=== PATIENT | female | born 1995 | race Caucasian/White ===

== ENCOUNTER → 2016-03-15 12:57 | Outpatient (CLI) | payer SELFPAY ==
[~2016-03-15 12:57] MED LIST: Demerol PO; GLUCOPHAGE500 MG PO; IBUPROFEN600 MG PO; METHYLDOPA500 MG PO; PRENATAL COMPLE1 TAB PO
[2016-04-25 03:43] VITALS: BMI 42.2
== END | disposition home or self-care (01) ==
LOC: D.LDO 12:57
DX: O13.3 Gestational [pregnancy-induced] hypertension without significant proteinuria, third trimester (principal); Z3A.33 33 weeks gestation of pregnancy; O16.3 Unspecified maternal hypertension, third trimester

== ENCOUNTER → 2016-03-19 14:08 | Outpatient (CLI) | payer SELFPAY ==
[2016-04-25 03:43] VITALS: BMI 42.2
== END | disposition home or self-care (01) ==
LOC: D.LDO 14:08
DX: O24.913 Unspecified diabetes mellitus in pregnancy, third trimester (principal); Z3A.33 33 weeks gestation of pregnancy

== ENCOUNTER → 2016-03-22 09:33 | Outpatient (CLI) | payer MEDICAID ==
[2016-04-25 03:43] VITALS: BMI 42.2
== END | disposition home or self-care (01) ==
LOC: D.LDO 09:33
DX: O24.419 Gestational diabetes mellitus in pregnancy, unspecified control (principal); Z3A.34 34 weeks gestation of pregnancy

== ENCOUNTER → 2016-03-26 17:32 | Outpatient (CLI) | payer MEDICAID ==
[2016-04-25 03:43] VITALS: BMI 42.2
== END | disposition home or self-care (01) ==
LOC: D.LDO 17:32
DX: O24.419 Gestational diabetes mellitus in pregnancy, unspecified control (principal); O16.3 Unspecified maternal hypertension, third trimester; Z3A.34 34 weeks gestation of pregnancy

== ENCOUNTER → 2016-03-29 13:50 | Outpatient (CLI) | payer MEDICAID ==
[2016-04-25 03:43] VITALS: BMI 42.2
== END | disposition home or self-care (01) ==
LOC: D.LDO 13:50
DX: O24.419 Gestational diabetes mellitus in pregnancy, unspecified control (principal); O13.3 Gestational [pregnancy-induced] hypertension without significant proteinuria, third trimester; Z3A.35 35 weeks gestation of pregnancy

== ENCOUNTER → 2016-04-02 13:15 | Outpatient (CLI) | payer MEDICAID ==
[2016-04-25 03:43] VITALS: BMI 42.2
== END | disposition home or self-care (01) ==
LOC: D.LDO 13:15
DX: O24.419 Gestational diabetes mellitus in pregnancy, unspecified control (principal); O16.3 Unspecified maternal hypertension, third trimester; Z3A.35 35 weeks gestation of pregnancy

== ENCOUNTER → 2016-04-05 10:04 | Outpatient (CLI) | payer MEDICAID ==
[2016-04-25 03:43] VITALS: BMI 42.2
== END | disposition home or self-care (01) ==
LOC: D.LDO 10:04
DX: O24.419 Gestational diabetes mellitus in pregnancy, unspecified control (principal); O16.3 Unspecified maternal hypertension, third trimester; Z3A.36 36 weeks gestation of pregnancy

== ENCOUNTER → 2016-04-09 16:36 | Outpatient (CLI) | payer MEDICAID ==
[2016-04-25 03:43] VITALS: BMI 42.2
== END | disposition home or self-care (01) ==
LOC: D.LDO 16:36
DX: O24.419 Gestational diabetes mellitus in pregnancy, unspecified control (principal); O16.3 Unspecified maternal hypertension, third trimester; Z3A.36 36 weeks gestation of pregnancy

== ENCOUNTER → 2016-04-12 11:50 | Outpatient (CLI) | payer MEDICAID ==
[2016-04-25 03:43] VITALS: BMI 42.2
== END | disposition home or self-care (01) ==
LOC: D.LDO 11:50
DX: O24.419 Gestational diabetes mellitus in pregnancy, unspecified control (principal); O16.3 Unspecified maternal hypertension, third trimester; Z3A.37 37 weeks gestation of pregnancy

== ENCOUNTER → 2016-04-16 10:30 | Outpatient (CLI) | payer MEDICAID ==
[2016-04-25 03:43] VITALS: BMI 42.2
== END | disposition home or self-care (01) ==
LOC: D.ER 10:30 → D.LDO 10:30
DX: O24.419 Gestational diabetes mellitus in pregnancy, unspecified control (principal); Z3A.37 37 weeks gestation of pregnancy; O16.3 Unspecified maternal hypertension, third trimester

== ENCOUNTER → 2016-04-19 16:06 | Outpatient (CLI) | payer MEDICAID ==
[2016-04-25 03:43] VITALS: BMI 42.2
== END | disposition home or self-care (01) ==
LOC: D.LDO 16:06
DX: O24.419 Gestational diabetes mellitus in pregnancy, unspecified control (principal); Z3A.38 38 weeks gestation of pregnancy; O10.913 Unspecified pre-existing hypertension complicating pregnancy, third trimester

== ENCOUNTER 2016-04-23 08:56 | Inpatient (IN) | payer MEDICAID ==
[~2016-04-23] VITALS: Ht 172.7 cm; Wt 125.9 kg
--- NOTE | 2016-04-23 09:21 | NUR ---
PT ARRIEVED TO OPS WITHOUT GOING TO HER PREOP APPT WITH DR SOLIS. CALLED DR SOLIS AND EXPLAINED TO HER THAT THE PATIENT DID NOT PREP/CLEAR LIQUIDS DR SOLIS STATED THAT SHE IS CANCELLED AND TO CALL HER OFFICE. SPOKE WITH JAMIA AT DR PARRY OFFICE AND SHE ASKED FOR THE PATIENT TO COME OVER TO THE OFFICE NOW. EXPLAINED TO PATIENT AND PT STATES UNDERSTANDING
[2016-04-25] MEDS ORDERED: PRENATAL COMPLE1 TAB PO (03:32)
[2016-04-25 03:43] VITALS: BP 145/83; Ht 172.7 cm; Wt 125.9 kg
[2016-04-25 04:06] LABS: HEMATOCRIT 35.5 % (36.0-48.0); HEMOGLOBIN 11.7 g/dL (12-16); MCH 28.4 pg (26.0-34.0); MCV 86.2 fL (80.0-100.0); MEAN PLATELET VOLUME 9.9 fL (7.4-10.4); RBC 4.12 10x6/uL (4.00-5.40); WBC 10.5 10x3/uL (4.8-10.8)
[2016-04-25] MEDS ORDERED: METHYLDOPA500 MG PO (04:08)
[2016-04-25] MEDS ORDERED: GLUCOPHAGE500 MG PO (04:09)
[2016-04-25 04:13] LABS: COLOR YELLOW (YELLOW)
[2016-04-25 04:14] LABS: APPEARANCE HAZY (CLEAR); BILIRUBIN NEGATIVE (NEGATIVE); GLUCOSE NEGATIVE (NEGATIVE); KETONE NEGATIVE (NEGATIVE); LEUKOCYTE ESTERASE TRACE (NEGATIVE); NITRITE NEGATIVE (NEGATIVE); PH 6.5 (5.0-6.0); PROTEIN TRACE mg/dL (NEGATIVE); SPECIFIC GRAVITY 1.015 (1.005-1.020); UROBILINOGEN NORMAL (NORMAL)
[2016-04-25 05:18] LABS: BACTERIA MANY /hpf (NONE SEEN); HYALINE CAST OCC /lpf (NONE SEEN); MUCUS >1+ /lpf (NONE SEEN); RED CELLS - URINE OCC /hpf (0-5)
--- NOTE | 2016-04-26 04:34 | NUR ---
NOTED WHEN TRANSFER PATIENT TO OR BED TAHT NO URINE OUTPUT IN PONCE, SMALL AMOUNT BLOOD TINGED MATERIAL IN PONCE ONLY IN CATHETER ITSELF, NOTIFIED DR KAUR IT WAS FOUND THAT PONCE HAD BEEN PLACED IN VAGINA, TAKEN OUT BY DR KAUR, AND NEW PONCE WAS THEN PLACED, WITH CRAWFORD OUTPUT NOTED. 0421 VIABLE BABY GIRL DELIVERED, CORD BLOOD AND GASES DONE AND SENT OUT, SEBAS.
[2016-04-26 05:51] VITALS: BP 140/69
--- NOTE | 2016-04-26 05:51 | NUR ---
RECEIVED PT VIA BED FROM OR POST C/S PER DR KAUR, PT TO ROOM 1216, VS INITIATED, ASSESSMENT PER FLOW SHEET, IV IN RIGHT WRIST INTACT WITH NO REDNESS OR EDEMA, WILL HANG NEW BAG OF PITOCIN, FF, ML, U/1, MOD BLEEDING NOTED WITH CLOTS, OCTAVIO CARE DONE WITH WET WARM WASH CLOTHS, [employer] WITH DERMABOND CDI WITH NO DRAINAGE NOTED, ICE PACK TO ABD, BLUE CHUX AND PINK PAD CHANGED, PONCE CATH INTACT, DRAINING DARK YELLOW URINE, EMPTIED 300 MLS FROM PONCE, SCD'S APPLIED AND WORKING PROPERLY, WILL INITIATE TALENT ACQUISITION PARTNER
[2016-04-26 06:05] VITALS: BP 160/83
--- NOTE | 2016-04-26 06:11 | NUR ---
VS CONTINUE, SPECIAL EDUCATION SUPERINTENDENT INITIATED PER THIS RN AND KATELYNN CALVILLO, RN, SEE EMAR, PT REQUESTED AND SERVED DIET BUFFY JORGENSEN, PT ORIENTED TO ROOM, BED IN LOW POSITION, SIDE RAILS X 2, CALL LIGHT IN REACH, FOB AND FAMILY MEMBER AT BEDSIDE
[2016-04-26 06:17] LABS: RAPID PLASMA REAGIN Non Reactive (Non Reactive)
[2016-04-26 06:20] VITALS: BP 149/76
[2016-04-26 06:35] VITALS: BP 145/73
--- NOTE | 2016-04-26 06:35 | NUR ---
PT VISITING WITH FOB, RATES INC PAIN 06/26, STATES "IT'S BETTER", PT DENIES NEEDS AT THIS TIME
--- NOTE | 2016-04-26 07:00 | NUR ---
SHIFT REPORT TO DAY SHIFT
--- NOTE | 2016-04-26 07:10 | NUR ---
FOB AT AIRCRAFT LOG CLERK, STATES "I THINK MY IS RUNNING A TEMPERATURE, SHE SAYS SHES REALLY HOT", THIS RN TO ROOM, TEMP 98.6
--- NOTE | 2016-04-26 07:43 | OP ---
PATIENT NAME: MALIA MONGE MEDICAL RECORD: [id number] :93 LOCATION:[facility] ADMISSION DATE:04/25/16 SURGEON: DENISE KAUR MD DATE OF OPERATION: 04/26/2016 PREOPERATIVE DIAGNOSIS: Nonreassuring trace. POSTOPERATIVE DIAGNOSIS: Nonreassuring trace. PROCEDURE: Primary low transverse section. SURGEON: Denise Kaur MD ANESTHESIA: Epidural. FINDINGS: An 8-pound 8.6 ounce female infant in cephalic presentation, clear fluids, 7 and 9 Apgars. ESTIMATED BLOOD LOSS: 800 cc. COMPLICATIONS OF SURGERY: None. OPERATIVE NOTE: The patient was taken to the OR and under adequate epidural anesthesia, prepped and draped in the usual manner for abdominal procedures. A transverse incision was made in the lower abdomen and extended through subcutaneous tissue, fascia, dividing muscles in the midline in the Pfannenstiel manner. Peritoneum was elevated and incised and this incision extended from the symphysis pubis to within 7 cm of the umbilicus, avoiding the bladder and abdominal organs. A transverse incision was then made in the lower uterine segment and infant was delivered through the uteroabdominal incision without complication. was thoroughly suctioned, cord doubly clamped and ligated and the handed to waiting nursery personnel. Placenta was removed manually. The uterus was cleansed of blood clots using a clean, dry lap. Uterine incision closed in two layers, first layer running interlocking #1 chromic suture, second layer a running #1 chromic suture. Hemostasis was good. Pelvis was copiously irrigated and suctioned and hemostasis again confirmed. Josef was applied to the incision. Fascial layer closed in a running noninterlocking #1 PDS loop suture. Skin incision closed in 3 layers, 2 layers of running 2-0 plain gut suture. Skin incision reapproximated with a subcuticular 2-0 plain gut suture. Dermabond was applied, a Steri-Strip dressing was applied and the patient went to recovery area in good condition. TRANSINT:[id number] Voice Confirmation ID: [id number] DOCUMENT ID: [id number] DENISE KAUR MD at 0743 CC: [id number] DICTATION DATE: 04/26/16 0528 ASSOCIATE FINANCIAL ADVISOR: 04/26/16 0551 ADM IN [facility] [address] [facility], [facility]
--- NOTE | 2016-04-26 08:10 | NUR ---
PATIENT IS AWAKE AND ALERT, VSS. SHE DENIES UNCONTROLLED PAIN. IS NOT VERY CONVERSANT. DOES MOST TALKING BUT SHE IS INTERACTIVE AND SMILES ALOT. SHE HASN'T SEEN HER BABY YET. SHE STATES THAT SHE HASN'T EVER HELD A . HER FF, MIDLINE. URINE IS PATENT TO THE BEDISDE UROMETER. SCD'S ARE ON AND PUMPING. IVF ARE INFUSING PER ORDERS AND INSTRUCTOR NURSE IS IN USE. RIGHT WRIST INSERTION SITE IS WITHOUT REDNESS/ SWELLING.
[2016-04-26 09:00] VITALS: BP 139/75
--- NOTE | 2016-04-26 12:30 | NUR ---
PATIENT C/O UNRELIEVED PAIN IN HER ABDOMEN. TORADOL GIVEN. PILLOWS PROVIDED FOR COMFORT AND POSITIONING. ASSISTED THE FATHER WITH SWADDLING THE . PLACED HER IN PATIENT'S ARMS UP ON PILLOWS. PATIENT LOOKING AT INFANT LOVINGLY. CALL LIGHT IS WITHIN HER REACH.
--- NOTE | 2016-04-26 16:20 | NUR ---
PATIENT'S BLEEDING REMAINS SMALL/MODERATE. SHE IS ANXIOUS TO GET OOB AND MOVE AROUND. SPOKE WITH DR. SOLIS. NEW ORDERS RECEIVED. FOB AT THE BEDISDE AND VERY ATTENTIVE.
--- NOTE | 2016-04-26 17:10 | NUR ---
PATIENT SITTING UP IN HER BED, HI FOWLERS, EATING HER SUPPER. ENIES NEEDS. FOB AT THE BEDSIDE.
--- NOTE | 2016-04-26 19:30 | NUR ---
OCTAVIO CARE DONE AND PADS CHANGED. MODERATE LOCHIA NOTED. FUNDUS FIRM U/2. PT C/O PAIN 08/26. CORRECTIVE THERAPY AIDE TEACHER DEMEROL AVAILABLE FOR PAIN CONTROL. S/O PRESENT IN ROOM HOLDING . FRESH ICE CAP TO ABDOMEN PROVIDED. ANAI TORO
[2016-04-26 20:15] VITALS: BP 146/91
--- NOTE | 2016-04-26 20:15 | NUR ---
USER INTERFACE DEVELOPER PERFORMED. RESP EVEN AND UNLABORED. LUNGS CLEAR BILATERALLY. FUNDUS FIRM U/2. PONCE CATHETER DC'D WITH 850CC CLEAR YELLOW URINE NOTED. SCDS PRESENT TO BLE. PUMP ON AND FUNCTIONING. PITOCIN INFUSING TO R HAND AT 125CC/HR. PLASTIC INJECTION MOLD MAKER DEMEROL AVAILABLE FOR PAIN CONTROL. S/O PRESENT IN ROOM AND SUPPORTIVE. ANAI TORO
--- NOTE | 2016-04-26 21:30 | NUR ---
IV TO SALINE LOC, ASSISTED UP TO BATHROOM. ASSISTED PT WITH PADS, PANTIES AND CLEAN GOWN. PT AMBULATED TO ROOM 1257. S/O AND INFANT AT SIDE. ASSISTED PT TO BED. LEMON NEWHALEN PROVIDED PER PT REQUEST. ANAI TORO
--- NOTE | 2016-04-26 21:40 | NUR ---
THIS RN TO BEDSIDE FOR SUPPORT. ATTEMPTED TO BREASTFEED . REFUSED TO LATCH. INFANT PLACED SKIN TO SKIN ON PT'S CHEST. ANAI TORO
--- NOTE | 2016-04-26 23:51 | NUR ---
PERCOCET 5/325 ADMINISTERED FOR C/O PAIN 06/26. ANAI TORO
[2016-04-27] VITALS (7 sets, daily range): BP systolic 127–155; BP diastolic 57–97
--- NOTE | 2016-04-27 00:15 | NUR ---
ASSISTED UP TO BATHROOM AND BACK TO BED. VS TAKEN AT THIS TIME. GOWN CHANGED. ANAI TORO
--- NOTE | 2016-04-27 02:00 | NUR ---
ROOM CHECK, PT RETURNED TO BED FROM BATHROOM. PT RATES PAIN 7/10. INFANT TO NSY PER PT REQUEST. ANAI TORO
--- NOTE | 2016-04-27 02:29 | NUR ---
PT MEDICATED WITH MOTRIN 600MG FOR C/O PAIN 08/26. FRESH ICE WATER PROVIDED PER PT REQUEST. ANAI TORO
--- NOTE | 2016-04-27 03:50 | NUR ---
PT RESTING WITH EYES CLOSED. AWAKENS EASILY WITH VERBAL STIMULI. VS TAKEN AND WNL. RATES PAIN 4/10. DENIES NEEDS AT THIS TIME. ANAI TORO
--- NOTE | 2016-04-27 04:29 | NUR ---
PT CALLS SCHOOL PSYCHOMETRIST LIGHT. REPORTED VOIDING THREE TIMES IN HAT. PT WANTS TO SIT UP IN CHAIR AND REQUESTED INFANT BE BROUGHT TO ROOM. ANAI TORO
--- NOTE | 2016-04-27 06:00 | NUR ---
ROOM CHECK, PT SITTING UP IN CHAIR. S/O ON COUCH HOLDING INFANT. DENIES NEEDS AT THIS TIME. ANAI TORO
--- NOTE | 2016-04-27 07:10 | NUR ---
THIS RN TO ROOM FOR SHIFT INTRODUCTION AND ASSESSMENT. PT RATING PAIN 8/10, STATES WORSE WITH AMBULATION. ASSESSMENT COMPLETED, VSS, SEE FLOWSHEET FOR DOC. POC DISCUSSED WITH PT AND FOB. PT INSTRUCTED AFTER PAIN IS BETTER CONTROLLED WITH MEDS SHE NEEDS TO AMBULATE AND SHOWER TODAY AND RN WILL ASSIST WITH BANDAGE REMOVAL. UNDERSTANDING VERBALIZED.
[2016-04-27 07:11] LABS: HEMATOCRIT 26.8 % (36.0-48.0); HEMOGLOBIN 8.8 g/dL (12-16); MCH 28.2 pg (26.0-34.0); MCHC 32.8 g/dL (31.0-37.0); MCV 85.9 fL (80.0-100.0); MEAN PLATELET VOLUME 9.3 fL (7.4-10.4); RBC 3.12 10x6/uL (4.00-5.40); RDW 15.5 % (11.5-14.5); WBC 14.7 10x3/uL (4.8-10.8)
--- NOTE | 2016-04-27 07:15 | NUR ---
LOCHIA DISCUSSED WITH PT. PT DENIES ANY CONCERNS, STATES THAT BLEEDING WAS HEAVIER AT FIRST BUT HAS DECREASED THROUGHOUT THE NIGHT. PT INSTRUCTED TO REPORT ANY LOCHIA FLOW THAT SATURATES A PERIPAD IN AN HOUR OR LESS. UNDERSTANDING VERBALIZED.
--- NOTE | 2016-04-27 07:20 | NUR ---
PT ADMIN PRN PERCOCET PER ORDER. PT GIVEN ICE WATER, FANS DELIVERS REGULAR DIET BREAKFAST TRAY. PT REPORTS THAT SHE HAS ALREADY PASSED GAS. PT INSTRUCTED TO CONTINUE WITH DIET ADVANCEMENT AND REPORT ANY NAUSEA. PT SITTING IN CHAIR AT BEDSIDE TABLE, FOB ON COUCH. WILL CONT TO MONITOR.
--- NOTE | 2016-04-27 07:50 | NUR ---
THIS RN TO ROOM, TOWELS AND PERIPADS PROVIDED TO PT. PT DENIES THAT SHE HAS ANY PAIN RELIEF FROM MED YET. PT INSTRUCTED SHE MAY HAVE IBUPROFEN AT 0830 PER ORDERED PRN SCHEDULE IF NEEDED. POC WITH BANDAGE REMOVAL IN SHOWER DISCUSSED WITH PT AND FOB. UNDERSTANDING VERBALIZED, PT INSTRUCTED TO CALL FOR ASSISTANCE. WILL CONT TO MONITOR.
--- NOTE | 2016-04-27 09:31 | NUR ---
THIS RN TO ROOM FOR PT CHECK. PT REPORTS PAIN RELIEF, STATES IT'S "MUCH BETTER". PT STATES SHE IS GETTING UP TO SHOWER AND FOB WILL ASSIST. PT INSTRUCTED TO SHOWER AND WET BANDAGE WELL AND CALL THIS RN FOR BANDAGE REMOVAL. UNDERSTANDING VERBALIZED. TO KAYLYNN.
--- NOTE | 2016-04-27 09:50 | NUR ---
THIS RN TO ROOM. PT SHOWERING, FOB ASSISTING. PT DENIES FEELING DIZZY OR LIGHTHEADED. BED LINENS CHANGED. PT ASSISTED TO REMOVING BANDAGE. INCISION IS C/D WITH STERI-STRIPS INTACT. PT INSTRUCTED TO PAT DRY AND APPLY PERIPAD TO INCISION WHEN DRESSING TO KEEP INCISION C/D. UNDERSTANDING VERBALIZED. PT INSTRUCTED TO CALL FOR ANY NEEDS. WILL CONT TO MONITOR.
--- NOTE | 2016-04-27 10:26 | NUR ---
PT TO BED AFTER SHOWER. STERISTRIPS REASSESSED. SMALL SPOT APPROX SIZE OF PENCIL ERASER OF BROWN BLOOD NOTED TO LEFT SIDE OF STERISTRIPS/INCISION. PERIPAD REPLACED TO INCISION. PT RATING PAIN 5/10, REQUESTING IBUPROFEN. IBUPROFEN ADMIN ORDERED, FRESH ICE WATER GIVEN. PT STATES SHE PLANS TO AMBULATE IN HALLS SHORTLY. PT INSTRUCTED SHE SHOULD AMBULATE AROUND UNIT AT LEAST TWICE TODAY, AND TO PLAN TO DO SO AGAIN AROUND DINNER TIME. UNDERSTANDING VERBALIZED. SRUx2, CL IN REACH. FOB IN ROOM. WILL CONT TO MONITOR.
--- NOTE | 2016-04-27 10:34 | NUR ---
DR SOLIS ON UNIT. AM BP REPORTED, QUESTIONED TO NEED TO RESTART ALDOMET PREVIOUSLY ORDERED TID DURING . ORDER RECEIVED TO RECHECK BP AT LUNCH TIME WILL REASSESS FOR NEED FOR ALDOMET.
--- NOTE | 2016-04-27 11:40 | NUR ---
THIS RN TO ROOM FOR PT CHECK. PT DENIES ANY NEEDS AT THIS TIME, QUESTIONS ABOUT SPIT UP. PT AND FOB INSTRUCTED ON BURPING INFANT MID-FEED TO HELP REDUCE SPIT UP. UNDERSTANDING VERBALIZED. NEW LINENS PROVIDED FOR . WILL CONT TO MONITOR.
--- NOTE | 2016-04-27 12:20 | NUR ---
THIS RN TO ROOM FOR VITALS/BP RECHECK ORDERED. BP 142/93, SEE FLOWSHEET FOR VS DOC. PT REPORTS THAT SHE TOOK 20MG LISINOPRIL DAILY PRE-PREG FOR CHRONIC HTN. WILL INFORM DR SOLIS OF PT AND PT REPORTS. PT REQUESTS HAT FOR , PROVIDED REQUESTED. WILL UPDATE ON POC ORDERED.
--- NOTE | 2016-04-27 12:30 | NUR ---
DR SOLIS NOTIFIED OF PT'S BP AND PT'S REPORTS OF PREVIOUS MED. DR SERRANO REVIEWS PT'S STATUS AND ORDERS FOR PT TO RESUME PRE-PREG BP MED OF 20MG LISINOPRIL PO DAILY. WILL NOTIFY PT AND ADMIN FIRST DOSE.
--- NOTE | 2016-04-27 14:51 | NUR ---
PT AMBULATING IN HALLWAY WITH SIG OTHER.
--- NOTE | 2016-04-27 15:47 | NUR ---
PT SITTING UP IN CHAIR AT BEDSIDE. VS TAKEN AND NOTED. ASKED PT RE PAIN RX, STATES "I'M IN QUITE A BIT OF PAIN." ADVISED WILL ADMINISTER PAIN RX ORDERED.
--- NOTE | 2016-04-27 16:13 | NUR ---
SITTING UP IN CHAIR AT BEDSIDE, TALKING WITH MULTIPLE VISITORS.
--- NOTE | 2016-04-27 17:04 | NUR ---
SITTING UP IN RECLINER WITH FEET ELEVATED, SMILING. NO NEEDS.
--- NOTE | 2016-04-27 17:58 | NUR ---
SITTING UP IN CHAIR EATING DINNER. PLANS TO AMBULATE LATER. ASKED ABOUT WHEN SHE GOES HOME. DISCUSSED OPTIONS OF . NOTED THAT PATIENT ON LISINOPRIL. INSTRUCTED SHE NEEDS TO DW WITH DR SOLIS ABOUT POSSIBLE DESIRES TO SINCE THIS BP MED MAY BE CONTRAINDICATED. VERBALIZED UNDERSTANDING AND SHE WILL THINK ABOUT TONIGHT AND TALK TO MD TOMORROW. DENIES NEEDING ANYTHING ELSE. TO CALL IF ANYTHING IS NEEDED. VISITORS AND IN R0OM.
--- NOTE | 2016-04-27 18:06 | NUR ---
DR SOLIS ON L&D AND NOTIFIED OF PT POSSIBLE DESIRE TO BREASTFEED AND WILL HAVE AN ANSWER IN AM.
--- NOTE | 2016-04-27 20:15 | NUR ---
PT. SITTING IN CHAIR AT BEDSIDE. TAKEN TO ROOM. ID OF BABY AND FOB MATCHED. ASSESSMENT DONE ON PT. RATES INCISIONAL PAIN A 6 OF 10 ON PAIN SCALE. ABD. INCISION CLEAN AND DRY. COTAVIO PAD NOTED AGAINST INCISIONAL AREA. DISCUSSED WITH PT. ABOUT WOUND CARE AT HOME AND PT. STATED UNDERSTANDING. BREATH SOUNDS CLEAR AND BOWEL SOUNDS AUDIBLE. PT. INQUIRED IF SHE NEEDED TO WALK IN HALLWAY AGAIN TONIGHT. INFORMED PT. THAT SHE DID IN FACT NEED TO WALK PRIOR TO GOING TO BED. FOB AND PT. WERE DISCUSSING IF COULD ALSO BE PUSHED IN HALLWAY. ENCOURAGED THE PT AND FOB TO CALL THIS NURSE TO TAKE INFANT BACK TO THE NURSERY PRIOR TO HER GOING WALKING A SAFETY FOR THE BABY IN CASE PT. WERE TO FALL SHE WOULD NOT DUMP FROM OPEN CRIB. BOTH STATED UNDERSTANDING. DENIES ANY PAIN IN LEGS AND NO REDNESS NOTED. DISCUSSED WITH PT. CONTINUING VITAMINS UNTIL SEEN IN OFFICE AND ALSO DISCUSSED ACTIVITY LEVEL WHEN SHE GOES HOME. FOB STATES HE IS TAKING 3 MORE WEEKS OFF FROM WORK SO HE WILL BE AT HOME TO HELP WITH PT. AND INFANT. FOB ATTENTIVE TO INFANT AT THIS TIME. PT. QUESTIONS ANSWERED REGARDING HER DISCHARGE INSTRUCTIONS. VISITOR IN ROOM AT THIS TIME. ALL PLANNNING TO EAT PIZZA.
--- NOTE | 2016-04-27 20:25 | NUR ---
PAIN MED GIVEN ORDERED. PT. FOB AND VISITOR ALL SITTING IN CHAIRS EATING PIZZA. IN OPEN CRIB AT BEDSIDE.
--- NOTE | 2016-04-27 21:15 | NUR ---
PT. CONTINUES TO SIT IN CHAIR. CHEERFUL AND RATES PAIN A 4 OF 10 ON PAIN SCALE AND STATES IT IS MUCH IMPROVED. DENIES ANY NEEDS AT THIS TIME.
--- NOTE | 2016-04-27 22:30 | NUR ---
CONTINUES TO SIT IN CHAIR. FOB STATES THAT THEY WENT WALKING IN THE HALLWAY SINCE MY LAST VISIT TO THE ROOM. ASSISTED PT. TO LIE IN BED FOR VITAL SIGNS. PT. DENIES ANY NEEDS AT THIS TIME. STATES SHE WOULD LIKE TO STAY IN BED FOR A WHILE. FOB ATTENDING TO WHICH IS LYING ON SOFA. PT. WITH PAIN OF 4 OF10 ON PAIN SCALE.
--- NOTE | 2016-04-27 23:00 | NUR ---
ACTIVATES CALL LIGHT. TO ROOM. FOB LOOKING AT INCISION AND ASK IF INCISION LOOKS NORMAL . STATES HE FELT IT WAS COMING APART. ONE AREA APPEARS TO BE OVERLAPPED DUE TO GLUE CAUSING AREA TO BE STICKY. SHOWS FOB THAT AREA OVERLAP EASILY COMES APART. STERI STRIPS INTACT. DISCUSSED CARE OF INCISION WITH BOTH PT. AND FOB. DISCUSSED USING SOAP AND WATER ON INCISION AND THEN DRYING WELL BEFORE OCTAVIO PAD APPLIED. FOB STATE THEY USE DIAL SOAP AND CONFIRMED WITH HIM THAT THAT WOULD BE GOOD CHOICE. FOB ATTENTIVE TO NEEDS OF PT. AND . STATES HE WILL PT. WASH INCISION AND KEEP IT DRY. ENCOURAGED BOTH TO CALL IF ANY FURTHER QUESTIONS ARISE. FOB ASSISTING PT. TO BATHROOM AT THIS TIME. REMAINS IN ROOM.
--- NOTE | 2016-04-28 00:45 | NUR ---
PT. CALLED. THIS NURSE TO ROOM. PT. REPORTS THAT THEY HAVE NOTICED THAT SHE HAS A HEMORRHOID AND INQUIRING IF THERE IS MEDICATION THAT SHE CAN USE. INFORMED PT. THAT WOULD HAVE TO CHECK ORDERS AND CHECK WHAT WAS AVAILABLE IN PHARMACY FOR USE. PT. RATES INCISIONAL PAIN AND HEMORRHOIDAL PAIN A 7 OF 10 ON PAIN SCALE. HAD DISCUSSED WITH PT. EARLIER IN NIGHT THAT DISCHARGE SCRIPT IS FOR DEMEROL AND SHE HAS DEMEROL ALSO ON HER MED PROFILE IF SHE WOULD LIKE TO TRY. PT. STATES THAT SHE WOULD LIKE TO GO AHEAD WITH DEMEROL THIS TIME FOR PAIN. FOB HOLDING ON SOFA.
--- NOTE | 2016-04-28 00:55 | NUR ---
PAIN MED GIVEN ORDERED. PT. INFORMED THAT ONLINE PRODUCER WAS GOING TO CHECK IF HEMORRHOID MEDICATION AVAILABLE IN NIGHT PHARMACY BUT DAY PHARMACY COULD FOR SURE GET MED FOR PT. PT. CURRENTLY SITTING IN CHAIR. ROLLS IN CHAIR AROUND ROOM. PT. AND FOB ARE PLANNING TO KEEP IN ROOM FOR NIGHT. INQUIRED IF THEY BOTH COULD SLEEP. INFORMED THEM THAT WOULD HAVE TO BE IN CRIB TO SLEEP AND NOT ON SOFA OR IN PT. BED. BOTH STATED UNDERSTANDING. PT. STATES THEY WILL SET AN ALARM FOR BABY TO EAT.
--- NOTE | 2016-04-28 01:37 | NUR ---
PT. WALKING ABOUT IN ROOM. STATES PAIN MED AND ICE CAP TO BUTTOCKS WORKED "VERY WELL". RATES PAIN A 3 OF 10 ON PAIN SCALE. DENIES ANY NEEDS.
--- NOTE | 2016-04-28 03:50 | NUR ---
PT. SITTING UP IN CHAIR USING CELL PHONE. INFANT IN OPEN CRIB BESIDE CHAIR. FOB SLEEPING ON SOFA.
--- NOTE | 2016-04-28 04:40 | NUR ---
PT. SITTING UP IN CHAIR ASLEEP. IN OPEN CRIB AT BEDSIDE. PT. DOES NOT AROUSE TO MOVEMENT IN ROOM.
--- NOTE | 2016-04-28 06:35 | NUR ---
LYING ON BACK WITH EYES CLOSED. RESPIRATIONS REGULAR.
[2016-04-28 07:55] VITALS: BP 111/72
--- NOTE | 2016-04-28 08:00 | NUR ---
ASSESSMENT DONE. AWAKE AT THIS TIME. RESTING IN BED. PT STATES THAT SHE IS WANTING TO BREAST FEED- WHEN QUESTIONED. STATES SHE IS WALKING ABOUT IN ROOM. BIKINI LINE INCISION WITH STERI STRIPS- CD&I. SMALL LOCHIA NOTED ON PADS.
--- NOTE | 2016-04-28 08:43 | NUR ---
SITTING UP IN BEDSIDE CHAIR EATING BREAKFAST. STATES THAT SHE WOULD LIKE PAIN MEDICATION WHEN ASK. AGREES THAT WOULD LIKE DEMEROL AND IBUPROFEN. STATES THAT SHE IS PASSING FLATUS. ENCOURAGED TO AMBULATE IN MACE MORE.
--- NOTE | 2016-04-28 10:10 | NUR ---
up and about in room. states pain is better and rates a 1 on scale of 0-10. t-dap info given and pt agrees to t-dap vaccine. linens for shower given.
[2016-04-28 12:00] VITALS: BP 141/88
[2016-04-28] MEDS ORDERED: METHYLDOPA500 MG PO (12:10)
[2016-04-28] MEDS ORDERED: IBUPROFEN600 MG PO (12:10)
--- NOTE | 2016-04-28 12:10 | NUR ---
dr crowley here -talks with pt and sign other. informed that is want to breast feed and that has not taken lisinopril since yesterday morning.
[2016-04-28] MEDS ORDERED: Demerol PO (12:14)
--- NOTE | 2016-04-28 13:45 | NUR ---
DISCHARGE INSTRUCTIONS VERBAL AND WRITTEN GIVEN. BP LOG SHEET WITH INSTRUCTIONS GIVEN PT STATES UNDERSTANDING AND THAT SHE HAS BP SETUP AT HOME. PESCRIPTIONS X 2 GIVEN. PT STATES SHE HAS ALDOMET 500MG TABLETS AT HOME. MEDICATION INFO SHEETS GIVEN ALONG WITH PT MED REC. PT HEALTH SUMMARY GIVEN. PT INST SHEETS GIVEN. PT DENIES QUESTIONS CONCERNING INFO
--- NOTE | 2016-04-28 14:20 | NUR ---
pt states she has read discharge inst and denies questions. up and about in room.
--- NOTE | 2016-04-28 14:43 | NUR ---
discharged to home with infant - to auto via w/c.
== END 2016-04-28 14:45 | disposition home or self-care (01) | DRG 766 ==
LOC: D.LDO 08:56 → EDSTATUS 09:03 → D.LD 04-25 03:14 → D.WS 04-25 03:14 → D.LD 04-26 21:30
PROVIDERS: ADMIT Obstetrics & Gynecology
PROC: 10D00Z1 Extraction of Products of Conception, Low, Open Approach (ICD-10-PCS; principal; 2016-04-26 03:50)
DX: O24.429 Gestational diabetes mellitus in childbirth, unspecified control (principal); Z3A.39 39 weeks gestation of pregnancy; Z37.0 Single live birth; O76 Abnormality in fetal heart rate and rhythm complicating labor and delivery; O13.4 Gestational [pregnancy-induced] hypertension without significant proteinuria, complicating childbirth; Z87.891 Personal history of nicotine dependence

== ENCOUNTER → 2016-04-23 09:35 | Outpatient (CLI) | payer MEDICAID ==
[2016-04-25 03:43] VITALS: BMI 42.2
== END | disposition home or self-care (01) ==
LOC: D.LDO 09:35
DX: O24.913 Unspecified diabetes mellitus in pregnancy, third trimester (principal); Z3A.38 38 weeks gestation of pregnancy; O16.3 Unspecified maternal hypertension, third trimester

== ENCOUNTER 2016-04-30 02:52 | Emergency (ER) | payer MEDICAID ==
[2016-04-25 03:43] VITALS: BMI 42.2
== END 2016-04-30 03:23 | disposition home or self-care (01) ==
LOC: D.ER 02:52
DX: G89.18 Other acute postprocedural pain (principal); F32.9 Major depressive disorder, single episode, unspecified; F17.200 Nicotine dependence, unspecified, uncomplicated